=== PATIENT | male | born 1945 | race Two or more races ===

== ENCOUNTER 2022-12-12 15:14 | Inpatient (IN) | payer OTHER ==
[~2022-12-12] VITALS: Ht 165.1 cm; Wt 65.3 kg
[2022-12-12] MEDS ORDERED: IPRATROPIUM/ALBUTEROL 0.5-3(2.5)MG/3ML NEB HHN ONE (15:30)
[2022-12-12] MEDS ORDERED: FUROSEMIDE 40MG/4ML VIAL IVP ONE (15:30)
[2022-12-12 16:19] LABS: CHLORIDE 102 mEq/L (98-107)
[2022-12-12 16:21] LABS: BASOPHILS % 0.5 % (0.0-2.0); EOSINOPHILS % 0.4 % (0.0-5.0); HEMATOCRIT. 43.4 % (42.0-52.0); HEMOGLOBIN. 14.4 g/dL (14.0-18.0); LYMPHOCYTES % 11.9 % (20.0-50.0); MEAN CORPUSCULAR HEMOGLOBIN 31.6 pg (28.0-32.0); MEAN CORPUSCULAR VOLUME 95.3 fL (80.0-94.0); MEAN PLATELET VOLUME 9.1 fl (7.4-10.4); MONOCYTES % 6.1 % (2.0-8.0); NEUTROPHILS % 81.1 % (40.0-76.0); PLATELET 182 x1000/uL (130-400); RED BLOOD CELL COUNT 4.55 mill/uL (4.7-6.1); RED CELL DISTRIBUTION WIDTH 15.7 % (11.6-14.6)
[2022-12-12] MEDS ORDERED: ASPIRIN 325MG EC TABLET PO NR (16:45)
[2022-12-12 16:55] LABS: BG BASE EXCESS -2.4 mmol/L (-2.0-2.0); BG CARBOXYHEMOGLOBIN 0.6 % (0.5-1.5); BG DEOXYHEMOGLOBIN 2.3 % (0.0-5.0); BG HCO3 ACT 21.3 mmol/L (22.0-26.0); BG METHEMOGLOBIN 0.1 % (0.0-1.5); BG OXYGEN SATURATION 97.7 % (92.0-98.5); BG PH 7.415 (7.350-7.450); BG PO2 104.6 mmHg (75.0-100.0); BG SAMPLE SITE RIGHT RADIAL; BG TOTAL HEMOGLOBIN 15.4 g/dL (12.0-18.0); BG VENT MODE MASK - BIPAP
[2022-12-12] MEDS ORDERED: IPRATROPIUM/ALBUTEROL 0.5-3(2.5)MG/3ML NEB HHN PRN (18:00)
[2022-12-12] MEDS ORDERED: CLONIDINE 0.1MG TABLET PO PRN (18:00)
[2022-12-12] MEDS ORDERED: GUAIFENESIN 200MG/10ML SUGAR FREE UDC PO PRN (18:00)
[2022-12-12] MEDS ORDERED: DOCUSATE SODIUM 100MG CAPSULE PO PRN (18:00)
[2022-12-12] MEDS ORDERED: ONDANSETRON HCL 4MG/2ML INJ IV PRN (18:00)
[2022-12-12] MEDS ORDERED: ACETAMINOPHEN 325MG TABLET PO PRN ×2 (18:00)
[2022-12-12 19:11] LABS: CLARITY URINE CLEAR (CLEAR); COLOR URINE YELLOW (YELLOW); KETONES URINE NEGATIVE (NEGATIVE); LEUKOCYTE ESTERASE URINE NEGATIVE (NEGATIVE); NITRITE URINE NEGATIVE (NEGATIVE); OCCULT BLOOD URINE NEGATIVE (NEGATIVE); PH URINE 5.5 (4.5-8.0); PROTEIN URINE NEGATIVE (NEGATIVE); SPECIFIC GRAVITY URINE 1.006 (1.005-1.030); UROBILINOGEN URINE 0.2 E.U./dL (0.2-1.0)
[2022-12-12 19:22] LABS: *AMPHETAMINES SCREEN URINE NEGATIVE (NEGATIVE); *BARBITURATES SCREEN URINE NEGATIVE (NEGATIVE); *BENZODIAZEPINES SCREEN URINE NEGATIVE (NEGATIVE); *COCAINE SCREEN URINE NEGATIVE (NEGATIVE); CANNABINOID URINE SCREEN NEGATIVE (NEGATIVE); METHADONE URINE SCREEN NEGATIVE (NEGATIVE); OPIATES URINE SCREEN NEGATIVE (NEGATIVE); PHENCYCLIDINE URINE SCREEN NEGATIVE (NEGATIVE)
[2022-12-12] MEDS: ENOXAPARIN 40MG/0.4ML SYR SUBCUT SCH (20:35)
[2022-12-12] MEDS ORDERED: FUROSEMIDE 40MG TABLET PO SCH (21:00)
[2022-12-12 21:36] LABS: T4 FREE 1.72 ng/dL (0.76-1.46)
[2022-12-12 21:49] LABS: CREATINE KINASE MB FRACTION 1.7 ng/mL (0.5-3.6)
[2022-12-12 21:55] LABS: FOLIC ACID (FOLATE) SERUM 11.8 ng/mL (>5.38)
[2022-12-12] MEDS ORDERED: CEFTRIAXONE 1GM PREMIX 50 ML IV NR (22:45)
[2022-12-12] MEDS ORDERED: IOHEXOL-350 100 ML BOTTLE ONE (23:40)
[2022-12-13] VITALS (9 sets, daily range): BP systolic 98–138; BP diastolic 52–72
[2022-12-13] MEDS: LORAZEPAM 0.5MG TABLET PO PRN ×2 (00:20→17:05)
[2022-12-13] MEDS ORDERED: FUROSEMIDE 40MG/4ML VIAL IVP SCH (09:00)
[2022-12-13 09:54] LABS: BG CARBOXYHEMOGLOBIN 1.8 % (0.5-1.5); BG DEOXYHEMOGLOBIN 2.9 % (0.0-5.0); BG FRACTION INSPIRED OXYGEN 28; BG HCO3 ACT 27.2 mmol/L (22.0-26.0); BG METHEMOGLOBIN 0.1 % (0.0-1.5); BG OXYHEMOGLOBIN 95.2 % (94.0-97.0); BG PCO2 36.2 mmHg (35.0-45.0); BG PH 7.493 (7.350-7.450); BG PO2 86.7 mmHg (75.0-100.0); BG SAMPLE SITE RIGHT RADIAL; BG TOTAL HEMOGLOBIN 14.5 g/dL (12.0-18.0); BG VENT MODE NASAL CANNULA
[2022-12-13 10:50] LABS: HEMATOCRIT 41.7 % (42.0-52.0); HEMOGLOBIN 14.2 g/dL (14.0-18.0); MEAN CORPUSCULAR HEMOGLOBIN 31.9 pg (28.0-32.0); MEAN CORPUSCULAR VOLUME 93.9 fL (80.0-94.0); PLATELET 157 x1000/uL (130-400); RED BLOOD CELL COUNT 4.44 mill/uL (4.7-6.1)
[2022-12-13 11:07] LABS: CHLORIDE 107 mEq/L (98-107)
[2022-12-13 11:13] LABS: CREATINE KINASE MB FRACTION 1.8 ng/mL (0.5-3.6)
[2022-12-13 11:16] LABS: HDL CHOLESTEROL 47 mg/dL (40-59); LDL CHOLESTEROL 54 mg/dL (5-100); PHOSPHORUS 2.8 mg/dL (2.5-4.9); T4 FREE 1.74 ng/dL (0.76-1.46)
[2022-12-13] MEDS ORDERED: POTASSIUM CHLORIDE 20MEQ TABLET SR PO NR (11:45)
[2022-12-13] MEDS ORDERED: KCL 20MEQ/100ML PREMIX 100 ML IV NR (12:30)
[2022-12-13] MEDS ORDERED: MAGN64TA9 MT (13:13)
[2022-12-13] MEDS ORDERED: AMI2 MT (13:14)
[2022-12-13] MEDS ORDERED: AZITHROMYCIN 500MG/250ML 250 ML IV SCH (13:45)
[2022-12-13] MEDS ORDERED: FLUT1BLS24 (13:47)
[2022-12-13] MEDS ORDERED: PULM25 NEB (13:47)
[2022-12-13] MEDS ORDERED: DIAZ2TAB3 MT (13:47)
[2022-12-13] MEDS ORDERED: DAPA10TA MT (13:47)
[2022-12-13] MEDS ORDERED: ASPI-1497 PO (13:47)
[2022-12-13] MEDS ORDERED: COR6 PO (13:47)
[2022-12-13] MEDS ORDERED: MOME17SP11 BOTHNSTRLS (13:47)
[2022-12-13] MEDS ORDERED: MONT-39 MT (13:51)
[2022-12-13] MEDS ORDERED: ZOLP6.2539 MT (13:51)
[2022-12-13] MEDS ORDERED: LEVO5TAB29 PO (13:51)
[2022-12-13] MEDS ORDERED: TIOT18CA3 INH (13:51)
[2022-12-13] MEDS: AMIODARONE HCL 200 MG TABLET PO SCH (14:34)
[2022-12-13] MEDS: ASPIRIN 81MG TABLET PO SCH (14:35)
[2022-12-13] MEDS: AZITHROMYCIN 500MG in DEXTROSE 5% WATER 250ML IV SCH (14:35)
[2022-12-13] MEDS ORDERED: NON FORMULARY PATIENT HOME MED XX SCH (16:15)
[2022-12-13] MEDS ORDERED: NON FORMULARY PATIENT HOME MED PO SCH (16:15)
[2022-12-13] MEDS ORDERED: FLUTICASONE/VILANTEROL 200-25 BLST.W.DEV ORI SCH (18:00)
[2022-12-13] MEDS: ENOXAPARIN 40MG/0.4ML SYR SUBCUT SCH (18:14)
[2022-12-13] MEDS: MONTELUKAST SODIUM 10MG TABLET PO SCH (18:14)
[2022-12-13 18:16] LABS: CHLORIDE 108 mEq/L (98-107)
[2022-12-13] MEDS: CARVEDILOL 6.25 MG TABLET PO SCH (21:00)
[2022-12-13] MEDS: IPRATROPIUM/ALBUTEROL 0.5-3(2.5)MG/3ML NEB HHN SCH (21:06)
[2022-12-13] MEDS: BUDESONIDE 0.5MG/2ML NEB HHN SCH (21:07)
[2022-12-13] MEDS: CEFTRIAXONE 1,000 MG in DEXTROSE 5% WATER 50 ML IV SCH (22:12)
[2022-12-14] VITALS (14 sets, daily range): BP systolic 93–114; BP diastolic 48–73
[2022-12-14] MEDS: IPRATROPIUM/ALBUTEROL 0.5-3(2.5)MG/3ML NEB HHN SCH ×4 (02:08→20:39)
[2022-12-14 05:54] LABS: HEMATOCRIT 41.6 % (42.0-52.0); MEAN CORPUSCULAR HEMOGLOBIN 31.9 pg (28.0-32.0); MEAN CORPUSCULAR VOLUME 94.5 fL (80.0-94.0); PLATELET 148 x1000/uL (130-400); RED CELL DISTRIBUTION WIDTH 15.7 % (11.6-14.6)
[2022-12-14 06:12] LABS: PHOSPHORUS 2.5 mg/dL (2.5-4.9)
[2022-12-14] MEDS: CARVEDILOL 6.25 MG TABLET PO SCH ×2 (08:15→21:00)
[2022-12-14] MEDS: AMIODARONE HCL 200 MG TABLET PO SCH (08:15)
[2022-12-14] MEDS: MAGNESIUM OXIDE PO SCH (08:15)
[2022-12-14] MEDS: ASPIRIN 81MG TABLET PO SCH (08:16)
[2022-12-14] MEDS: BUDESONIDE 0.5MG/2ML NEB HHN SCH ×2 (08:39→20:39)
[2022-12-14] MEDS ORDERED: FARXIGA 10 MG PO SCH (09:00)
[2022-12-14] MEDS: AZITHROMYCIN 500MG in DEXTROSE 5% WATER 250ML IV SCH (15:02)
[2022-12-14] MEDS: MONTELUKAST SODIUM 10MG TABLET PO SCH (17:59)
[2022-12-14] MEDS: ENOXAPARIN 40MG/0.4ML SYR SUBCUT SCH (17:59)
[2022-12-14] MEDS: CEFTRIAXONE 1,000 MG in DEXTROSE 5% WATER 50 ML IV SCH (22:49)
[2022-12-15] VITALS (12 sets, daily range): BP systolic 94–141; BP diastolic 46–94
[2022-12-15] MEDS: IPRATROPIUM/ALBUTEROL 0.5-3(2.5)MG/3ML NEB HHN SCH ×4 (01:42→20:28)
[2022-12-15] MEDS: LORAZEPAM 0.5MG TABLET PO PRN ×2 (02:08→11:44)
[2022-12-15 05:28] LABS: BASOPHILS % 0.2 % (0.0-2.0); EOSINOPHILS % 1.2 % (0.0-5.0); HEMATOCRIT. 42.8 % (42.0-52.0); HEMOGLOBIN. 14.1 g/dL (14.0-18.0); LYMPHOCYTES % 11.5 % (20.0-50.0); MEAN CORPUSCULAR HEMOGLOBIN 31.4 pg (28.0-32.0); MEAN CORPUSCULAR VOLUME 95.4 fL (80.0-94.0); MEAN PLATELET VOLUME 9.4 fl (7.4-10.4); MONOCYTES % 9.3 % (2.0-8.0); NEUTROPHILS % 77.8 % (40.0-76.0); PLATELET 172 x1000/uL (130-400); RED BLOOD CELL COUNT 4.48 mill/uL (4.7-6.1); RED CELL DISTRIBUTION WIDTH 15.7 % (11.6-14.6)
[2022-12-15 05:34] LABS: CHLORIDE 106 mEq/L (98-107)
[2022-12-15 05:38] LABS: PHOSPHORUS 2.9 mg/dL (2.5-4.9)
[2022-12-15] MEDS: CARVEDILOL 6.25 MG TABLET PO SCH (05:48)
[2022-12-15] MEDS: BUDESONIDE 0.5MG/2ML NEB HHN SCH ×2 (08:01→20:27)
[2022-12-15] MEDS ORDERED: DIGOXIN 500MCG/2ML AMP IV NR (09:00)
[2022-12-15] MEDS: CARVEDILOL 3.125 MG TABLET PO SCH ×2 (09:00→21:00)
[2022-12-15] MEDS: ASPIRIN 81MG TABLET PO SCH (11:09)
[2022-12-15] MEDS: AZITHROMYCIN 500 MG TABLET PO SCH (11:10)
[2022-12-15] MEDS: AMIODARONE HCL 200 MG TABLET PO SCH (11:10)
[2022-12-15] MEDS: MAGNESIUM OXIDE PO SCH (11:10)
[2022-12-15] MEDS: MONTELUKAST SODIUM 10MG TABLET PO SCH (18:28)
[2022-12-15] MEDS: ENOXAPARIN 40MG/0.4ML SYR SUBCUT SCH (18:28)
[2022-12-15] MEDS: ZOLPIDEM TARTRATE 5MG TABLET PO PRN (21:04)
[2022-12-15] MEDS: CEFTRIAXONE 1,000 MG in DEXTROSE 5% WATER 50 ML IV SCH (22:22)
[2022-12-16] VITALS (9 sets, daily range): BP systolic 94–117; BP diastolic 45–73
[2022-12-16] MEDS: IPRATROPIUM/ALBUTEROL 0.5-3(2.5)MG/3ML NEB HHN SCH ×4 (01:08→21:04)
[2022-12-16 06:50] LABS: HEMATOCRIT 36.3 % (42.0-52.0); HEMOGLOBIN 12.1 g/dL (14.0-18.0); MEAN CORPUSCULAR HEMOGLOBIN 31.4 pg (28.0-32.0); MEAN CORPUSCULAR VOLUME 94.1 fL (80.0-94.0); PLATELET 154 x1000/uL (130-400); RED BLOOD CELL COUNT 3.85 mill/uL (4.7-6.1); RED CELL DISTRIBUTION WIDTH 15.1 % (11.6-14.6)
[2022-12-16 06:56] LABS: CHLORIDE 107 mEq/L (98-107)
[2022-12-16 07:01] LABS: PHOSPHORUS 2.4 mg/dL (2.5-4.9)
[2022-12-16] MEDS: ASPIRIN 81MG TABLET PO SCH (08:53)
[2022-12-16] MEDS: AMIODARONE HCL 200 MG TABLET PO SCH (08:54)
[2022-12-16] MEDS: CARVEDILOL 3.125 MG TABLET PO SCH ×2 (08:54→21:30)
[2022-12-16] MEDS: MAGNESIUM OXIDE PO SCH (08:55)
[2022-12-16] MEDS: BUDESONIDE 0.5MG/2ML NEB HHN SCH ×2 (09:04→21:04)
[2022-12-16] MEDS: AZITHROMYCIN 500 MG TABLET PO SCH (12:29)
[2022-12-16 14:41] LABS: BG BASE EXCESS -0.7 mmol/L (-2.0-2.0); BG CARBOXYHEMOGLOBIN 1.4 % (0.5-1.5); BG DEOXYHEMOGLOBIN 11.5 % (0.0-5.0); BG FRACTION INSPIRED OXYGEN 21; BG HCO3 ACT 22.6 mmol/L (22.0-26.0); BG METHEMOGLOBIN 0.1 % (0.0-1.5); BG OXYGEN SATURATION 88.3 % (92.0-98.5); BG PCO2 33.2 mmHg (35.0-45.0); BG PO2 54.1 mmHg (75.0-100.0); BG TOTAL HEMOGLOBIN 13.5 g/dL (12.0-18.0); BG VENT MODE ROOM AIR
[2022-12-16] MEDS: ENOXAPARIN 40MG/0.4ML SYR SUBCUT SCH (17:24)
[2022-12-16] MEDS: MONTELUKAST SODIUM 10MG TABLET PO SCH (17:24)
[2022-12-16] MEDS: ZOLPIDEM TARTRATE 5MG TABLET PO PRN (21:30)
[2022-12-16] MEDS: CEFTRIAXONE 1,000 MG in DEXTROSE 5% WATER 50 ML IV SCH (23:14)
[2022-12-17] VITALS: BP 94/46
[2022-12-17] MEDS: IPRATROPIUM/ALBUTEROL 0.5-3(2.5)MG/3ML NEB HHN SCH ×3 (02:44→21:17)
[2022-12-17 04:00] VITALS: BP 93/63
[2022-12-17 08:00] VITALS: BP 124/76
[2022-12-17] MEDS: BUDESONIDE 0.5MG/2ML NEB HHN SCH ×2 (09:10→21:17)
[2022-12-17] MEDS: AMIODARONE HCL 200 MG TABLET PO SCH (09:23)
[2022-12-17] MEDS: ASPIRIN 81MG TABLET PO SCH (09:23)
[2022-12-17] MEDS: CARVEDILOL 3.125 MG TABLET PO SCH ×2 (09:24→20:21)
[2022-12-17] MEDS: MAGNESIUM OXIDE PO SCH (09:58)
[2022-12-17 12:00] VITALS: BP 99/59
[2022-12-17] MEDS: AZITHROMYCIN 500 MG TABLET PO SCH (12:30)
[2022-12-17 16:00] VITALS: BP 92/51
[2022-12-17] MEDS: MONTELUKAST SODIUM 10MG TABLET PO SCH (17:43)
[2022-12-17] MEDS: ENOXAPARIN 40MG/0.4ML SYR SUBCUT SCH (18:44)
[2022-12-17 19:57] VITALS: BP 93/65
[2022-12-17] MEDS: ZOLPIDEM TARTRATE 5MG TABLET PO PRN (20:20)
[2022-12-17] MEDS: CEFTRIAXONE 1,000 MG in DEXTROSE 5% WATER 50 ML IV SCH (22:13)
[2022-12-18] VITALS: BP 91/50
[2022-12-18] MEDS: IPRATROPIUM/ALBUTEROL 0.5-3(2.5)MG/3ML NEB HHN SCH ×2 (01:10→08:49)
[2022-12-18 04:14] VITALS: BP 99/60
[2022-12-18 08:00] VITALS: BP 124/66
[2022-12-18] MEDS: ASPIRIN 81MG TABLET PO SCH (08:31)
[2022-12-18] MEDS: AMIODARONE HCL 200 MG TABLET PO SCH (08:36)
[2022-12-18] MEDS: CARVEDILOL 3.125 MG TABLET PO SCH (08:36)
[2022-12-18] MEDS: MAGNESIUM OXIDE PO SCH (08:36)
[2022-12-18] MEDS: BUDESONIDE 0.5MG/2ML NEB HHN SCH (08:50)
[2022-12-18 12:00] VITALS: BP 112/57
[2022-12-18] MEDS ORDERED: COR3 PO (13:03)
[2022-12-18 13:09] VITALS: BP 112/57
== END 2022-12-18 16:00 | disposition home or self-care (01) | DRG 193 ==
LOC: ER 15:14 → MICUSO 17:21 → EDBEDREQTM 17:30 → EDBEDREQ 17:30 → 5EST 12-13 08:21 → 7WST 12-16 13:37
PROVIDERS: ADMIT Internal Medicine; ATTEND Internal Medicine
PROC: 5A09357 Assistance with Respiratory Ventilation, Less than 24 Consecutive Hours, Continuous Positive Airway Pressure (ICD-10-PCS; principal; 2022-12-12)
DX: J18.9 Pneumonia, unspecified organism (principal); I50.23 Acute on chronic systolic (congestive) heart failure; J96.01 Acute respiratory failure with hypoxia; J96.02 Acute respiratory failure with hypercapnia; E44.1 Mild protein-calorie malnutrition; I42.9 Cardiomyopathy, unspecified; I48.92 Unspecified atrial flutter; J44.0 Chronic obstructive pulmonary disease with (acute) lower respiratory infection; N18.9 Chronic kidney disease, unspecified; I44.1 Atrioventricular block, second degree; I08.1 Rheumatic disorders of both mitral and tricuspid valves; I44.30 Unspecified atrioventricular block; R74.01 Elevation of levels of liver transaminase levels; I25.10 Atherosclerotic heart disease of native coronary artery without angina pectoris; R29.6 Repeated falls; I48.91 Unspecified atrial fibrillation; R26.9 Unspecified abnormalities of gait and mobility; Z79.51 Long term (current) use of inhaled steroids; Z79.899 Other long term (current) drug therapy; Z95.810 Presence of automatic (implantable) cardiac defibrillator; Z95.5 Presence of coronary angioplasty implant and graft; Z79.82 Long term (current) use of aspirin; Z68.24 Body mass index [BMI] 24.0-24.9, adult
CPT/HCPCS: 36415; 36600; 71045; 71275; 76604; 80048; 80053; 80061; 80305; 81003; 82375; 82550; 82553; 82607; 82746; 82805; 83036; 83605; 83735; 83880; 84100; 84145; 84439; 84443; 84481; 84484; 85025; 85027; 85379; 87070; 93005; 93306; 93970; 94640; 94660; 97162; 99285; J0456; J0696; J1160; J1650; J1940; J3480; J7060; J7626; Q9967